=== PATIENT | male | born 2000 | race Caucasian/White ===

== ENCOUNTER 2022-09-02 21:59 | Emergency (ER) | payer OTHER ==
[~2022-09-02] VITALS: Ht 188 cm; Wt 83.9 kg
[2022-09-02 22:16] VITALS: BP 127/56
--- NOTE | 2022-09-02 22:16 | NUR ---
TO ER BED 12, [id number] [facility] FOR OVERDOSE. "TOOK 15 PILLS OF METHOCARBAMOL 750 MG" DENIES SI. PT STATES " JUST WANTED TO GET HIGH", AAOX3, BREATHING EVEN AND NON LABORED, CONNECTED TO MONITOR.
--- NOTE | 2022-09-02 22:31 | NUR ---
UNABLE TO PROVIDE URINE SAMPLE AT THIS TIME. PROVIDED WITH URINAL
--- NOTE | 2022-09-02 22:42 | NUR ---
CONTACTED POISON CONTROL, SPOKE WITH PAM (PHARMACIST). DIRECTIONS RELAYED TO .
--- NOTE | 2022-09-02 22:47 | NUR ---
BLOOD, URINE COLLECTED, SENT TO LAB
[2022-09-02 22:53] LABS: BASOPHILS % (AUTO) 0.8 % (0.0-2.0); EOSINOPHILS % (AUTO) 6.2 % (0.0-6.0); HEMATOCRIT 36 % (39-51); HEMOGLOBIN 12.3 g/dL (13.5-17.5); LYMPHOCYTES # (AUTO) 1.6 K/uL (0.8-4.8); LYMPHOCYTES % (AUTO) 30.9 % (20.0-44.0); MEAN CORPUSCULAR HGB CONC 34 g/dl (31.0-36.0); MEAN CORPUSCULAR VOLUME 82 fL (80-96); MONOCYTES # (AUTO) 0.4 K/uL (0.1-1.30); MONOCYTES % (AUTO) 6.7 % (2.0-12.0); NEUTROPHILS % (AUTO) 55.4 % (43.0-81.0); PLATELET COUNT (AUTO) 232 K/uL (150-450); RED BLOOD CELL COUNT(AUTO) 4.43 MIL/uL (4.5-6.0); WHITE BLOOD COUNT (AUTO) 5.3 K/uL (4.3-11.0)
[2022-09-02 23:34] LABS: BILIRUBIN,URINE NEGATIVE (NEGATIVE); COLOR,URINE YELLOW (YELLOW); LEUKOCYTE ESTERASE ,URINE NEGATIVE (NEGATIVE); NITRITE, URINE NEGATIVE (NEGATIVE); PROTEIN,URINE TRACE mg/dl (NEGATIVE); UGLUCOSE NEGATIVE (NEGATIVE); UROBILINOGEN,URINE 0.2 EU/dL (0.2)
[2022-09-02 23:40] LABS: ALANINE AMINOTRANSFERASE 29 U/L (12-78); ALBUMIN 3.8 g/dL (3.4-5.0); ALKALINE PHOSPHATASE 83 U/L (46-116); ASPARTATE AMINOTRANSFERASE 28 U/L (15-37); BILIRUBIN,DIRECT 0.2 mg/dL (0.0-0.2); BILIRUBIN,TOTAL 0.8 mg/dL (0.2-1.0); CALCIUM, SERUM 8.9 mg/dL (8.5-10.1); CARBON DIOXIDE 32 mmol/L (21-32); CHLORIDE 103 mmol/L (98-107); GLUCOSE 92 mg/dL (74-106); POTASSIUM 3.6 mmol/L (3.5-5.1); SODIUM SERUM 142 mmol/L (136-145); TOTAL PROTEIN, SERUM 7.5 g/dL (6.4-8.2); UREA NITROGEN, BLOOD 13 mg/dL (7-18)
[2022-09-02 23:50] LABS: BACTERIA,URINE Rare /HPF (None Seen); RBC,URINE 0-2 /HPF (0-2); SQUAMOUS EPITHELIAL CELL,UR Few /HPF (None Seen); WBC,URINE 0-2 /HPF (0-3)
[2022-09-03 01:25] LABS: ALCOHOL, BLOOD < 3 mg/dL (0-0)
--- NOTE | 2022-09-03 05:04 | NUR ---
Patient discharged to home in stable condition. Written and verbal after care instructions given. Patient verbalizes understanding of instruction.
== END 2022-09-03 05:04 | disposition home or self-care (01) ==
LOC: ER 22:04
DX: T42.8X1A Poisoning by antiparkinsonism drugs and other central muscle-tone depressants, accidental (unintentional), initial encounter (principal); Y92.199 Unspecified place in other specified residential institution as the place of occurrence of the external cause; R94.31 Abnormal electrocardiogram [ECG] [EKG]; Z20.822 Contact with and (suspected) exposure to COVID-19; F19.10 Other psychoactive substance abuse, uncomplicated
CPT/HCPCS: 99284; 93005; 85025; 80048; 80076; 81001; 36415; 82962; 87426; 80143; 80320; 80307; C9803; G0480